=== PATIENT | female | born 1935 | race Two or more races ===

== ENCOUNTER 2019-06-24 12:26 | Inpatient (IN) | payer MEDICARE ==
[~2019-06-24] VITALS: Ht 160 cm; Wt 72.6 kg
[2019-06-24 13:10] LABS: BASO % 1 % (0-3); EOS # 0.2 x10^3/uL (0.0-0.7); EOS % 2 % (0-3); HEMOGLOBIN 11.9 g/dL (12.0-15.5); LYMPH # 0.9 x10^3/uL (1.0-4.8); LYMPH % 13 % (24-48); MEAN CORPUSCULAR HEMOGLOBIN 28 pg (25-35); MEAN CORPUSCULAR HGB CONC 32 g/dL (31-37); MEAN CORPUSCULAR VOLUME 86 fL (79-100); MONO # 0.4 x10^3/uL (0.0-1.1); MONO % 7 % (0-9); NEUT # 5.2 x10^3uL (1.8-7.7); NEUT % 78 % (31-73); PLATELET COUNT 208 x10^3/uL (140-400); RED BLOOD COUNT 4.33 x10^6/uL (3.50-5.40); RED CELL DISTRIBUTION WIDTH 15.7 % (11.5-14.5); WHITE BLOOD COUNT 6.6 x10^3/uL (4.0-11.0)
[2019-06-24 13:25] LABS: ALBUMIN 3.3 g/dL (3.4-5.0); CREATININE 0.9 mg/dL (0.6-1.0); DIRECT BILIRUBIN 0.1 mg/dL (0.0-0.2); GFR 59.8; POTASSIUM 4.6 mmol/L (3.5-5.1); TOTAL BILIRUBIN 0.3 mg/dL (0.2-1.0); TOTAL PROTEIN 6.7 g/dL (6.4-8.2)
--- NOTE | 2019-06-24 13:27 | PHYS DOC ---
Past History Past Medical History: Diabetes Additional Past Medical Histor: sciatica, chronic low back pain Additional Past Surgical Histo: unknown Alcohol Use: None Social History Narrative: lives with daughter Adult General Chief Complaint Chief Complaint: MULTIPLE COMPLAINTS HPI HPI 84-year-old female presenting to the emergency department today with discomfort in the chest region over the past 24 hours. This is a mild nonradiating pain without alleviating factors. The primary reason the patient's years for chronic low back pain. She was stepping down a step when she stepped farther than expected and may have injured her ankle and left hip. She has a mild amount of pain in the left hip and left ankle. She did not fall. She did not pass out. Onset today. Location left hip left ankle. She has a history of diabetes but denies having high blood pressure. She denies unilateral calf swelling or redness. She denies hemoptysis or history of DVT or PE. Review of systems is negative for abdominal pain vomiting fevers chills. All other review of systems negative. ED course: 84-year-old female presenting the emergency department today primarily complaining of left hip pain and chronic low back pain. She does mention a mild chest discomfort is been on and off more over the past 48 hours. EKG obtained and reviewed by myself shows sinus rhythm with a regular rate. ST segments congruent. Not suggestive of acute coronary syndrome. Chest x-ray and x-ray of the hip and ankle ordered along with blood work. CBC shows mild anemia. Chemistry panel shows minimally elevated lipase. Troponin within normal limits. Urinalysis is positive for leuk esterase. Many bacteria. Chest x-ray shows suspected left basilar infiltrate. X-rays of the hip and ankle show no acute fracture or dislocation. We will give the patient IV Levaquin here in the e mergency department. I spoke with Dr. Alonso who accepts patient for admission. Allergies Allergies Allergies Coded Allergies Type Severity Reaction Last Updated Verified Penicillins Allergy Unknown 06/24/19 Yes Physical Exam Physical Exam Constitutional: Well developed, well nourished, no acute distress, non-toxic appearance. [] HENT: Normocephalic, atraumatic, bilateral external ears normal, oropharynx moist, no oral exudates, nose normal. [] Eyes: PERRLA, EOMI, conjunctiva normal, no discharge. [] Neck: Normal range of motion, no tenderness, supple, no stridor. Cardiovascular: Regular rate and rhythm without a murmur. Lungs & Thorax: Bilateral breath sounds clear to auscultation [] Abdomen: Bowel sounds normal, soft, no tenderness, no masses, no pulsatile masses. [] Skin: Warm, dry, no erythema, she has a rash on her back that is circular darkening of the skin in 2cm diameter lesions that is been there chronically. Back: No tenderness, no CVA tenderness. [] Extremities: Patient has mild pain and left hip with passive range of motion but is able to ambulate without any hip pain. She has mild tenderness palpation of the left ankle without any swelling or ecchymosis. The foot is nontender. Palpable pulse with 2 second cap refill. Normal neurovascular status. Otherwise remainder the extremities are nontender with normal range of motion in joints and neurovascularly intact. Neurologic: Alert and oriented X 3, normal motor function, normal sensory function, no focal deficits noted. [] Psychologic: Affect normal, judgement normal, mood normal. [] Current Patient Data Lab Results Laboratory Tests Test 06/24/19 12:56 White Blood Count 6.6 x10^3/uL (4.0-11.0) Red Blood Count 4.33 x10^6/uL (3.50-5.40) Hemoglobin 11.9 g/dL (12.0-15.5) L Hematocrit 37.0 % (36.0-47.0) Mean Corpuscular Volume 86 fL (79-100) Mean Corpuscular Hemoglobin 28 pg (25-35) Mean Corpuscular Hemoglobin Concent 32 g/dL (31-37) Red Cell Distribution Width 15.7 % (11.5-14.5) H Platelet Count 208 x10^3/uL (140-400) Neutrophils (%) (Auto) 78 % (31-73) H Lymphocytes (%) (Auto) 13 % (24-48) L Monocytes (%) (Auto) 7 % (0-9) Eosinophils (%) (Auto) 2 % (0-3) Basophils (%) (Auto) 1 % (0-3) Neutrophils # (Auto) 5.2 x10^3uL (1.8-7.7) Lymphocytes # (Auto) 0.9 x10^3/uL (1.0-4.8) L Monocytes # (Auto) 0.4 x10^3/uL (0.0-1.1) Eosinophils # (Auto) 0.2 x10^3/uL (0.0-0.7) Basophils # (Auto) 0.0 x10^3/uL (0.0-0.2) EKG EKG [] Radiology/Procedures Radiology/Procedures [] Course & Med Decision Making Course & Med Decision Making Pertinent Labs and Imaging studies reviewed. (See chart for details) [] Dragon Disclaimer Dragon Disclaimer This electronic medical record was generated, in whole or in part, using a voice recognition dictation system. Departure Departure: Impression: Primary Impression: Left hip pain Additional Impressions: Rash Left ankle pain Chest pain Disposition: ADMITTED INPATIENT Condition: STABLE Referrals: PCP,NO (PCP) Patient Instructions: Chest Pain (Nonspecific) Additional Instructions: Thank you for allowing us to participate in your care today. Return to the emergency department you have any new or worsening symptoms, or if you are concerned for any reason. Return to emergency department if you have any new or concerning symptoms including but not limited to fever, chills, nausea, vomiting, intractable pain, any new rashes, chest pain, shortness of air, uncontrolled bleeding, difficulty breathing, and/or vision loss. Follow up with your primary care physician within 1-2 days. Call your Primary Doctor tomorrow and inform them of your visit today. If you do not have a primary care provider we are happy to provide you with a list of our primary care providers contact information. This condition should be evaluated by your primary care physician and any recommended consulting services for continued management within 2 days after discharge. If at any time, you are having difficulty getting into your primary care doctor or a specialist, return to the emergency department. Problem Qualifiers KEYA CHEN MD Jun 24, 2019 13:27
--- NOTE | 2019-06-24 13:44 | RAD ---
Exam performed: One view chest, left hip and pelvis and left ankle. Indication: Chest pain and pelvic pain, Date of Service: 06/24/2019 12:44 PM Comparison: None available. Single AP upright portable view chest findings: Cardiomediastinal silhouette is mildly enlarged. Ectatic tortuous aorta is seen. Mild airspace opacity seen in the left lung base. No pleural effusion or pneumothorax is detected. The bony structures are normal. Impression: Stable mild cardiomegaly. Suspected left basilar infiltrates. End impression 1 view pelvis and left hip findings: There is narrowing of bilateral hip joints predominantly the left hip joint with mild periarticular sclerosis. The sacroiliac joints appear grossly unremarkable.There is no acute fracture or dislocation. No soft tissue swelling or foreign body seen. IMPRESSION: Advanced degenerative arthrosis involving both hip joints, greater on the left. End impression 3 views left ankle findings: Normal alignment of the ankle mortise is preserved. There is no acute fracture or dislocation. There is diffuse soft tissue swelling around the ankle joint. No foreign body. IMPRESSION: Diffuse soft tissue swelling on the left ankle without underlying bony abnormality. Electronically signed by: Rosemary Garza MD (06/24/2019 1:41 PM) [facility]
[2019-06-24] MEDS ORDERED: IV NORMAL SALINE 1,000ML 1,000 ML IV SCH (14:13)
[2019-06-24 14:53] LABS: BILIRUBIN,URINE NEG (NEG); CLARITY,URINE CLOUDY; COLOR,URINE YELLOW; GLUCOSE,URINE NEG (NEG)
[2019-06-24 14:54] LABS: BACTERIA,URINE MANY /HPF (0-FEW); NITRITE,URINE NEG (NEG); RBC,URINE 0 /HPF (0-2); SQUAMOUS EPITHELIAL CELL,UR OCC /LPF; UROBILINOGEN,URINE 0.2 mg/dL (0.2 mg/dL); WBC,URINE 20-40 /HPF (0-4)
[2019-06-24 15:41] VITALS: BP 161/73
[2019-06-24] MEDS ORDERED: DIPH25CA58 PO (17:50)
[2019-06-24] MEDS ORDERED: TRIA15OI9 TP (17:50)
[2019-06-24] MEDS ORDERED: TRAM-48 PO (17:50)
[2019-06-24] MEDS ORDERED: METF850T8 PO (17:50)
[2019-06-24] MEDS ORDERED: GABA-586 PO (17:50)
[2019-06-24] MEDS ORDERED: ASPI81TA50 PO (17:50)
[2019-06-24 19:00] VITALS: BP 135/76
[2019-06-24] MEDS: TRIAMCINOLONE ACETONIDE 0.1% TOPICAL CREAM 15GM TUBE. TP SCH (21:00)
[2019-06-24] MEDS: diphenhydrAMINE HCL 25 MG CAPSULE PO SCH (21:00)
[2019-06-24] MEDS: GABAPENTIN 300 MG CAPSULE. PO SCH (21:00)
[2019-06-24] MEDS: metFORMIN 850 MG TABLET PO SCH (21:00)
[2019-06-24] MEDS: traMADol 50 MG TABLET PO SCH (21:00)
--- NOTE | 2019-06-24 22:35 | EKG ---
[address] [address] Test Date: 2019-06-24 Test Time: 12:40:51 Pat Name: BAYLEE WHALEN Department: Room: 111 A Gender: F Java Sdet: JOSE : 1935 Requested By: KEYA CHEN Order Number: [id number] Reading MD: Omar Kidd MD Measurements Intervals Tatamy Rate: 72 P: 30 AK: 146 QRS: -31 QRSD: 94 T: 38 QT: 392 QTc: 436 Interpretive Statements SINUS RHYTHM VENTRICULAR PREMATURE COMPLEX(ES) Electronically Signed On 06-25-2019 15:03:35 CDT by Omar Kidd MD
[2019-06-24 23:09] VITALS: BP 131/72
[2019-06-25] MEDS: IV NORMAL SALINE 1,000ML 1,000 ML IV SCH ×3 (01:07→21:51)
[2019-06-25 06:00] VITALS: BP 136/78
[2019-06-25 06:59] LABS: CALCIUM 8.4 mg/dL (8.5-10.1); CREATININE 0.8 mg/dL (0.6-1.0); GFR 68.5; POTASSIUM 4.4 mmol/L (3.5-5.1)
[2019-06-25 07:00] LABS: BASO % 1 % (0-3); EOS # 0.2 x10^3/uL (0.0-0.7); EOS % 4 % (0-3); HEMATOCRIT 33.8 % (36.0-47.0); HEMOGLOBIN 10.9 g/dL (12.0-15.5); LYMPH # 1.1 x10^3/uL (1.0-4.8); LYMPH % 20 % (24-48); MEAN CORPUSCULAR HEMOGLOBIN 28 pg (25-35); MEAN CORPUSCULAR HGB CONC 32 g/dL (31-37); MEAN CORPUSCULAR VOLUME 86 fL (79-100); MONO # 0.5 x10^3/uL (0.0-1.1); MONO % 9 % (0-9); NEUT # 3.7 x10^3uL (1.8-7.7); NEUT % 67 % (31-73); PLATELET COUNT 181 x10^3/uL (140-400); RED BLOOD COUNT 3.95 x10^6/uL (3.50-5.40); RED CELL DISTRIBUTION WIDTH 15.5 % (11.5-14.5); WHITE BLOOD COUNT 5.6 x10^3/uL (4.0-11.0)
[2019-06-25] MEDS: metFORMIN 850 MG TABLET PO SCH ×2 (08:00→16:26)
[2019-06-25] MEDS: LACTOBACILLUS RHAMNOSUS GG 1 CAPSULE. PO SCH ×2 (08:24→20:18)
[2019-06-25] MEDS: traMADol 50 MG TABLET PO SCH ×2 (08:24→20:20)
[2019-06-25] MEDS: GABAPENTIN 300 MG CAPSULE. PO SCH ×2 (08:25→20:17)
[2019-06-25] MEDS: ASPIRIN ENTERIC COATED 81 MG TABLET.DR. PO SCH (08:25)
[2019-06-25] MEDS: diphenhydrAMINE HCL 25 MG CAPSULE PO SCH ×2 (08:25→20:21)
[2019-06-25] MEDS ORDERED: FLU VAX QS 2019-20 (36MOS+)/PF 0.5 ML SYRINGE. VAX IM ONE (09:00)
[2019-06-25] MEDS: TRIAMCINOLONE ACETONIDE 0.1% TOPICAL CREAM 15GM TUBE. TP SCH ×2 (09:36→20:22)
[2019-06-25 11:41] VITALS: BP 120/77
--- NOTE | 2019-06-25 12:49 | HP ---
ADMIT DATE: HISTORY OF PRESENT ILLNESS: The patient is an 84-year-old female patient who came to the Emergency Room complaining of discomfort in her chest over the last 24 hours. She is also deemed the pain is mild and radiating without alleviating factors. She has also chronic low back pain. She was stepping down the steps when she stepped further than expected and may have injured her ankle and left hip. She has a mild amount of pain in the left hip and left ankle joint. She did not fall and not pass out. She was evaluated in the Emergency Room and has had extensive lab work including chemistry. Her white cell count was normal. She has mild elevation of lipase and her urinalysis showed that she has 20-40 wbc's, many bacteria and the urine was cloudy. She has had a chest x-ray, which showed that the cardiomediastinal silhouette is mildly enlarged, ectatic tortuous aorta is seen, mild airspace opacity seen in the left lung base. No pleural effusion or pneumothorax detected. She does have mild suspected left basilar infiltrate. The x-ray of the pelvis and left hip showed she has advanced degenerative arthrosis involving both hip joints, greater on the left. She also has diffuse soft tissue swelling of the left ankle without underlying bony abnormalities. The patient was admitted and was treated with IV levofloxacin for pneumonia as well as urinary tract infection. She continued on IV fluid, continued on all her other medications. PAST MEDICAL HISTORY: Significant for type 2 diabetes mellitus and generalized osteoarthritis. She apparently has a skin rash that has been going on for almost 2 years now. It is pruritic, affects both shoulders and chest wall anteriorly and also both upper extremities. Dark colored nodules with surrounding areas of dark skin. PAST SURGICAL HISTORY: Significant for cataract extraction in the left eye as well as cholecystectomy. ALLERGIES: She is allergic to PENICILLIN. MEDICATIONS: She is currently on following medications: She is on diphenhydramine 25 mg twice a day, aspirin 81 mg once a day, tramadol 50 mg twice a day, gabapentin 300 mg twice a day. She is on metformin 850 mg twice a day with meals and triamcinolone acetonide applied topically twice a day to the affected area of the skin. FAMILY HISTORY: She has 3 sisters and 3 brothers though still alive and both parents are , but does not know the date and the cause of their . SOCIAL HISTORY: She is and has 3 sons and 3 daughters. She smokes occasionally. Does not drink alcohol or use any recreational drugs. 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 REVIEW OF SYSTEMS: As per history of present illness. PHYSICAL EXAMINATION GENERAL: When I examined her, she looked well and was clearly in no apparent respiratory distress. No pallor, jaundice, cyanosis or thyromegaly. No jugular venous distention. No lower limb edema. VITAL SIGNS: Her heart rate was 71, blood pressure was 144/71, temperature was 97.9, respiratory rate was 20, and oxygen saturation was 96%. HEAD, EYES, EARS, NOSE AND THROAT: Showed normocephalic, atraumatic. NECK: Supple. HEART: Showed normal first and second heart sounds. No gallop or murmur. CHEST: Clear to auscultation. No crepitation or rhonchi. ABDOMEN: Distended, soft, nontender. NEUROLOGIC: She is awake, alert, responding appropriately. All cranial nerves intact. EXTREMITIES: She moves extremities without difficulty. She ambulates without assistance or assistive devices, although her daughter stated that she is very unsteady. LABORATORY DATA: On admission showed a white cell count of 6600, hemoglobin 11.9, hematocrit 37, MCV 86 and platelet count of 208,000 with normal manual differential. Her chemistry showed that her serum sodium 140, potassium 4.6, chloride 106, bicarbonate 26, anion gap of 8, BUN 25, creatinine 0.9, estimated GFR was 60 mL per minute. Her glucose 165, calcium was 9. Total bilirubin, AST, ALT, alkaline phosphatase were normal. Total protein was 6.7, albumin was 3.3 and serum lipase was 401. Urinalysis showed the urine was yellow, cloudy with a pH of 5, specific gravity of 1.010. The urine was negative for protein, glucose, ketones, blood, nitrite with moderate amount of leukocyte esterase. There are no rbc's. There are 20-40 wbc's and too many bacteria. Her chest x-ray showed that the patient has cardiomediastinal silhouette is mildly enlarged, ectatic tortuous aorta is seen, mild airspace opacity is seen in the left lung base. No pleural effusion or pneumothorax detected. The bony structures are normal. X-ray of the pelvis and left hip showed that the patient has advanced degenerative arthrosis involving both hip joints, greater on the left and she has also soft tissue swelling surrounding the left ankle joint without underlying bony abnormalities. ASSESSMENT AND PLAN: The patient was admitted with community-acquired pneumonia as well as urinary tract infection. She was also found to have advanced osteoarthritis of the left hip joint and left ankle joint. She has chest pain that was atypical and patient was started on IV Levaquin and was continued on all her other medications and decide the further management accordingly. BIRGIT PARTIDA MD DR: ARIS/real JOB#: [id number] / [id number]
--- NOTE | 2019-06-25 13:49 | PN ---
DATE: 06/25/2019 SUBJECTIVE: The patient is sitting at the edge of the bed comfortably in no apparent distress. She apparently continued to complain of pain in her hip joint and her ankle joint also. She has this pruritic skin rash affecting mostly both shoulder joints and upper extremities and part of the anterior chest wall. PHYSICAL EXAMINATION: GENERAL: When I examined her, she was somewhat pale, but no jaundice, cyanosis, or thyromegaly. No jugular venous distension. No limb edema. VITAL SIGNS: Her heart rate was 64, blood pressure was 136/78, temperature was 97.8, respiratory rate was 18, and oxygen saturation was 95%. HEAD, EYES, EARS, NOSE, AND THROAT: Normocephalic, atraumatic. NECK: Supple. HEART: Showed normal first and second heart sounds. No gallop or murmur. CHEST: Clear to auscultation. No crepitation or rhonchi. ABDOMEN: Distended, soft, nontender. NEUROLOGIC: She was awake, alert, responding appropriately. Her intake and output are incompletely recorded. LABORATORY DATA: Her lab work as of this morning showed that her serum sodium was 139, potassium 4.4, chloride 108, bicarbonate 24, anion gap of 6, BUN 23, creatinine 0.8, estimated GFR was 68.5 mL per minute. Her glucose 137, calcium was 8.4. She has so far 3 sets of cardiac enzymes, showed troponin to be less than 0.017 ruling out myocardial infarction. Her white cell count was 5600, hemoglobin 11, hematocrit 33, MCV 86, and platelet count of 181,000. Her urine culture is still pending at the time of this dictation. ASSESSMENT AND PLAN: This is an 84-year-old female patient who came in with complaint of low back pain, pain in her left hip and left ankle joint. X-ray showed advanced degenerative joint disease and soft tissue swelling around her left ankle without any obvious fracture. She was found to have left lower lobe infiltrate as well as urinary tract infection. She is now on Levaquin. My plan is to continue with that today. We will repeat all her labs tomorrow and if she remains stable, we will discharge her tomorrow to continue on oral antibiotic. BIRGIT PARTIDA MD DR: ARIS/real JOB#: [id number] / [id number]
--- NOTE | 2019-06-25 15:15 | PDOC ---
PROVIDER NOTE PROVIDER NOTE PROVIDER NOTE CC: Chest pain HPI: 84 y.o woman presenting with chest pain. Being tx for PNA and UTI. I had a long conversation with her and her daughter. Patient apparently advised to have a heart cath in [place] and she has refused. She again today does NOT want a heart procedure or further testing and only wants medical therapy. Denies any current chest pain, orthopnea, PND or LE edema. No syncope or palpitations. Pmhx: 1. HTN 2. Tobacco abuse Sochx: From [place]. Occ tobacco use. ALL: PCN Meds: reviewed. No present CV meds. Constitutional: Well developed, well nourished, no acute distress, non-toxic appearance. HENT: Normocephalic, atraumatic, Eyes: clear Neck: Normal range of motion, no tenderness, supple, no stridor. Cardiovascular: JVP not elevated. No carotid bruit. Nor precordial pulsations or heaves. S1 N,S2N. No murmurs. No rubs or clicks. Thorax and Lungs: Normal respiration. Normal chest expansion. Normal to percuss. Equal breath sounds. No crackles. No wheeze. Abdomen: Bowel sounds normal, soft, no tenderness, no masses, no pulsatile masses. Skin: Warm, dry, no erythema, no rash. Back: No tenderness, no CVA tenderness. Extremities: 1+ pulses, no tenderness, no cyanosis, no clubbing, ROM intact, no edema. Neurologic: Alert and oriented X 3, normal motor function, normal sensory function, no focal deficits noted. Psychologic: Affect normal, judgement normal, mood normal. DIAGNOSTIC TESTING: EKG unremarkable Labs reviewed. Negative trop Impression: 1. Atypical chest pain, possibly related to infection. 2. HTN 3. Tobacco abuse 4. ? CAD based on recommendatios from [place] for cardiac cath? Plan: 1. Since patient wants conservative mgmt, plan for medical therapy only as discussed above. -Start metoprolol 12.5mg bid, imdur 30mg daily, atorvastatin 20mg daily, and continue asa 81mg daily Pls call with questions. Thanks IRISH CHACON MD Jun 25, 2019 15:15
[2019-06-25 15:28] VITALS: BP 119/69
[2019-06-25 15:48] VITALS: BP 119/69
[2019-06-25] MEDS: ISOSORBIDE MONONITRATE ER 30 MG TAB.ER.24H PO SCH (16:26)
[2019-06-25] MEDS ORDERED: METHYL SALICYLATE/MENTHOL TOPICAL OINTMENT 57GM TUBE. TP PRN (20:00)
[2019-06-25 20:15] VITALS: BP 116/67
[2019-06-25] MEDS: METOPROLOL TART IMMED RELEASE 25 MG TABLET PO SCH (20:18)
[2019-06-25] MEDS ORDERED: ATORVASTATIN CALCIUM 20 MG TABLET PO SCH (21:00)
[2019-06-25 23:54] VITALS: BP 124/69
[2019-06-26 06:05] VITALS: BP 126/69
[2019-06-26] MEDS: metFORMIN 850 MG TABLET PO SCH (08:00)
--- NOTE | 2019-06-26 08:09 | PDOC ---
CARDIO Progress Notes Date & Time Date of Service DATE: 06/26/19 TIME: 08:06 Time of Evaluation 08:06 Subjective Notes No chest pain, palpitations, dizziness Vitals Vitals Vital Signs Date Time Temp Pulse Resp B/P (MAP) Pulse Ox O2 Delivery O2 Flow Rate FiO2 06/26/19 06:05 98.1 70 16 126/69 (88) 94 Room Air Weight Weight [ ] Input and Output I.O. Intake and Output 06/26/19 06:59 Intake Total 1000 ml Balance 1000 ml IV Total 1000 ml # Voids 6 Laboratory Labs Laboratory Tests Test 06/24/19 12:56 06/24/19 14:19 06/24/19 16:46 06/24/19 20:10 White Blood Count 6.6 x10^3/uL (4.0-11.0) Red Blood Count 4.33 x10^6/uL (3.50-5.40) Hemoglobin 11.9 g/dL (12.0-15.5) Hematocrit 37.0 % (36.0-47.0) Mean Corpuscular Volume 86 fL (79-100) Mean Corpuscular Hemoglobin 28 pg (25-35) Mean Corpuscular Hemoglobin Concent 32 g/dL (31-37) Red Cell Distribution Width 15.7 % (11.5-14.5) Platelet Count 208 x10^3/uL (140-400) Neutrophils (%) (Auto) 78 % (31-73) Lymphocytes (%) (Auto) 13 % (24-48) Monocytes (%) (Auto) 7 % (0-9) Eosinophils (%) (Auto) 2 % (0-3) Basophils (%) (Auto) 1 % (0-3) Neutrophils # (Auto) 5.2 x10^3uL (1.8-7.7) Lymphocytes # (Auto) 0.9 x10^3/uL (1.0-4.8) Monocytes # (Auto) 0.4 x10^3/uL (0.0-1.1) Eosinophils # (Auto) 0.2 x10^3/uL (0.0-0.7) Basophils # (Auto) 0.0 x10^3/uL (0.0-0.2) Sodium Level 140 mmol/L (136-145) Potassium Level 4.6 mmol/L (3.5-5.1) Chloride Level 106 mmol/L (98-107) Carbon Dioxide Level 26 mmol/L (21-32) Anion Gap 8 (6-14) Blood Urea Nitrogen 25 mg/dL (7-20) Creatinine 0.9 mg/dL (0.6-1.0) Estimated GFR (Cockcroft-Gault) 59.8 Glucose Level 165 mg/dL (70-99) Calcium Level 9.0 mg/dL (8.5-10.1) Total Bilirubin 0.3 mg/dL (0.2-1.0) Direct Bilirubin 0.1 mg/dL (0.0-0.2) Aspartate Amino Transf (AST/SGOT) 20 U/L (15-37) Alanine Aminotransferase (ALT/SGPT) 28 U/L (14-59) Alkaline Phosphatase 122 U/L (46-116) Troponin I Quantitative < 0.017 ng/mL (0-0.055) < 0.017 ng/mL (0-0.055) Total Protein 6.7 g/dL (6.4-8.2) Albumin 3.3 g/dL (3.4-5.0) Lipase 401 U/L (73-393) Urine Collection Type Unknown Urine Color Yellow Urine Clarity Cloudy Urine pH 5.0 Urine Specific [place] 1.010 Urine Protein Neg (NEG-TRACE) Urine Glucose (UA) Neg mg/dL (NEG) Urine Ketones (Stick) Neg mg/dL (NEG) Urine Blood Neg (NEG) Urine Nitrite Neg (NEG) Urine Bilirubin Neg (NEG) Urine Urobilinogen Dipstick 0.2 mg/dL (0.2 mg/dL) Urine Leukocyte Esterase Mod (NEG) Urine RBC 0 /HPF (0-2) Urine WBC 20-40 /HPF (0-4) Urine Squamous Epithelial Cells Occ /LPF Urine Bacteria Many /HPF (0-FEW) Glucose (Fingerstick) 125 mg/dL (70-99) Test 06/24/19 22:16 06/25/19 03:00 06/25/19 06:19 Glucose (Fingerstick) 128 mg/dL (70-99) Troponin I Quantitative < 0.017 ng/mL (0-0.055) White Blood Count 5.6 x10^3/uL (4.0-11.0) Red Blood Count 3.95 x10^6/uL (3.50-5.40) Hemoglobin 10.9 g/dL (12.0-15.5) Hematocrit 33.8 % (36.0-47.0) Mean Corpuscular Volume 86 fL (79-100) Mean Corpuscular Hemoglobin 28 pg (25-35) Mean Corpuscular Hemoglobin Concent 32 g/dL (31-37) Red Cell Distribution Width 15.5 % (11.5-14.5) Platelet Count 181 x10^3/uL (140-400) Neutrophils (%) (Auto) 67 % (31-73) Lymphocytes (%) (Auto) 20 % (24-48) Monocytes (%) (Auto) 9 % (0-9) Eosinophils (%) (Auto) 4 % (0-3) Basophils (%) (Auto) 1 % (0-3) Neutrophils # (Auto) 3.7 x10^3uL (1.8-7.7) Lymphocytes # (Auto) 1.1 x10^3/uL (1.0-4.8) Monocytes # (Auto) 0.5 x10^3/uL (0.0-1.1) Eosinophils # (Auto) 0.2 x10^3/uL (0.0-0.7) Basophils # (Auto) 0.0 x10^3/uL (0.0-0.2) Sodium Level 139 mmol/L (136-145) Potassium Level 4.4 mmol/L (3.5-5.1) Chloride Level 109 mmol/L (98-107) Carbon Dioxide Level 24 mmol/L (21-32) Anion Gap 6 (6-14) Blood Urea Nitrogen 23 mg/dL (7-20) Creatinine 0.8 mg/dL (0.6-1.0) Estimated GFR (Cockcroft-Gault) 68.5 Glucose Level 137 mg/dL (70-99) Calcium Level 8.4 mg/dL (8.5-10.1) Physical Exams HEENT: Neck Supple W Full Motion Chest: Symmetric Lungs: Clear to Auscultation Heart: S1S2, RRR Abdomen: Soft N/T Neurology: alert, oriented, follow commands Assessment Assessment 1. Chest pain, atypical. AMI ruled out. 2. Hypertension; controlled 3. Diabetes, II 4. Tobaccoism 5. ? CAD Recommendations Continue conservative management as per patient request Patient refusing ASA, statin, BB, and indur. Nothing further to add from a CV stanpoint. May discharge RAJAT STANFORD APRN Jun 26, 2019 08:09
[2019-06-26] MEDS: IV NORMAL SALINE 1,000ML 1,000 ML IV SCH ×2 (08:22→14:01)
[2019-06-26] MEDS: GABAPENTIN 300 MG CAPSULE. PO SCH (08:23)
[2019-06-26] MEDS: diphenhydrAMINE HCL 25 MG CAPSULE PO SCH (08:23)
[2019-06-26] MEDS: LACTOBACILLUS RHAMNOSUS GG 1 CAPSULE. PO SCH (08:23)
[2019-06-26] MEDS: traMADol 50 MG TABLET PO SCH (08:24)
[2019-06-26] MEDS: ASPIRIN ENTERIC COATED 81 MG TABLET.DR. PO SCH (08:24)
[2019-06-26] MEDS: ISOSORBIDE MONONITRATE ER 30 MG TAB.ER.24H PO SCH (08:28)
[2019-06-26] MEDS: METOPROLOL TART IMMED RELEASE 25 MG TABLET PO SCH (08:29)
[2019-06-26] MEDS: TRIAMCINOLONE ACETONIDE 0.1% TOPICAL CREAM 15GM TUBE. TP SCH (08:29)
[2019-06-26 10:39] VITALS: BP 149/76
[2019-06-26] MEDS ORDERED: ASPI-630 PO (14:43)
[2019-06-26] MEDS ORDERED: ATOR20TA PO (14:43)
[2019-06-26] MEDS ORDERED: ISOS30TA4 PO (14:43)
[2019-06-26] MEDS ORDERED: METO25TA4 PO (14:43)
[2019-06-26] MEDS ORDERED: LEVO500T59 PO (14:43)
[2019-06-26 15:00] VITALS: BP 162/82
[2019-06-29 08:08] LABS: HEMOGLOBIN A1C 7.7 % (4.8-5.6)
== END 2019-06-26 15:30 | disposition home or self-care (01) | DRG 391 ==
LOC: ER 12:26 → 1 SOUTH 15:13
PROVIDERS: ADMIT Internal Medicine; ATTEND Internal Medicine
DX: K21.9 Gastro-esophageal reflux disease without esophagitis (principal); J18.9 Pneumonia, unspecified organism; N39.0 Urinary tract infection, site not specified; M16.12 Unilateral primary osteoarthritis, left hip; I10 Essential (primary) hypertension; E11.9 Type 2 diabetes mellitus without complications; G89.29 Other chronic pain; D64.9 Anemia, unspecified; Z88.0 Allergy status to penicillin; L29.9 Pruritus, unspecified; Z90.49 Acquired absence of other specified parts of digestive tract; F17.200 Nicotine dependence, unspecified, uncomplicated; I25.10 Atherosclerotic heart disease of native coronary artery without angina pectoris
CPT/HCPCS: 36415; 71045; 73502; 73610; 80048; 80076; 81001; 82947; 83036; 83690; 84484; 85025; 87086; 90471; 90686; 93005; 96365; J1956; Q0163; 99285-25; J7030

== ENCOUNTER 2019-06-30 11:11 | Inpatient (IN) | payer MEDICARE ==
[~2019-06-30] VITALS: Ht 160 cm; Wt 71.8 kg
[~2019-06-30 11:11] MED LIST: ASPI-630 PO; ASPI81TA50 PO; ATOR20TA PO; DIPH25CA58 PO; GABA-586 PO; ISOS30TA4 PO; LEVO500T59 PO; METF850T8 PO; METO25TA4 PO; TRAM-48 PO; TRIA15OI9 TP
[2019-06-30] MEDS ORDERED: IV NORMAL SALINE 1,000ML 1,000 ML IV SCH (11:26)
[2019-06-30] MEDS ORDERED: ONDANSETRON PF 4 MG/2 ML VIAL. IVP ONE ×2 (11:30→15:15)
--- NOTE | 2019-06-30 11:36 | PHYS DOC ---
Past History Past Medical History: Diabetes Additional Past Medical Histor: sciatica, chronic low back pain Past Surgical History: Cholecystectomy Additional Past Surgical Histo: unknown Alcohol Use: None Drug Use: None Adult General Chief Complaint Chief Complaint: NAUSEA/VOMITING/[facility] Patient is an 84-year-old female who presents with report of nausea with vomiting and some abdominal discomfort that started yesterday. Patient has had no diarrhea. Patient did have a bowel movement this morning after having taken some laxatives. Patient does have a history of constipation. Patient reports no fever. Pain at this time is mild in her abdomen and is more in the upper abdomen. There is no radiation of the pain into the back. Patient denies any chest pain or shortness of breath. She has had difficulty with keeping anything down since onset of vomiting.[] Review of Systems Review of Systems Constitutional: Denies fever or chills [] Respiratory: Denies cough or shortness of breath [] Cardiovascular: No additional information not addressed in HPI [] GI: Complains of abdominal pain with nausea and vomiting. Denies diarrhea [] Integument: Denies rash or skin lesions [] Neurologic: Denies headache, focal weakness or sensory changes [] All other systems were reviewed and found to be within normal limits, except as documented in this note. Current Medications Current Medications Current Medications Medications (Trade) Dose Ordered Sig/Roc Start Time Stop Time Status Last Admin Dose Admin Ondansetron HCl (Zofran) 4 mg 1X ONCE 06/30/19 11:30 06/30/19 11:31 Sodium Chloride 1,000 ml @ 1,000 mls/hr Q1H 06/30/19 11:26 06/30/19 12:25 Allergies Allergies Allergies Coded Allergies Type Severity Reaction Last Updated Verified Penicillins Allergy Unknown 06/24/19 Yes Physical Exam Physical Exam Constitutional: Well developed, well nourished, no acute distress, non-toxic appearance. [] HENT: Normocephalic, atraumatic, bilateral external ears normal, oropharynx moist, no oral exudates, nose normal. [] Eyes: PERRLA, EOMI, conjunctiva normal, no discharge. [] Neck: Normal range of motion, no tenderness, supple. [] Cardiovascular: Regular rate and rhythm[] Lungs & Thorax: Bilateral breath sounds clear to auscultation [] Abdomen: Bowel sounds normal, soft, with mild epigastric tenderness. [] Skin: Warm, dry, no erythema, no rash. [] Extremities: No tenderness, no cyanosis, no clubbing, ROM intact. [] Neurologic: Awake and alert, no focal deficits noted. [] EKG EKG EKG demonstrates normal sinus rhythm with rate of 81.[] Radiology/Procedures Radiology/Procedures [] Impressions: PROCEDURE: CT ABD PELV W/ IV CONTRST ONLY CT ABD PELV W/ IV CONTRST ONLY Indication: Abdomen pain. Exposure: One or more of the following individualized dose reduction techniques were utilized for this examination: 1. Automated exposure control 2. Adjustment of the mA and/or kV according to patient size 3. Use of iterative reconstruction technique. Technique: Intravenous contrast was given. No oral contrast per request. Mild linear markings of the lung bases compatible with atelectasis or fibrosis. Trace pericardial effusion. Liver and spleen appear unremarkable. Pancreas is unremarkable. No adrenal mass. Kidneys demonstrate symmetric enhancement with renal cortical atrophy and lobulated morphology. No evidence of hydronephrosis or dominant mass. Gallbladder is surgically absent. Aorta is calcified without aneurysmal dilatation. No significant lymph node enlargement. No significant small bowel distention. No evidence of acute colitis. The appendix appears normal. No evidence of ascites or pneumoperitoneum. Urinary bladder appears unremarkable. No evidence of pelvic mass. Small fat-containing anterior abdominal wall hernia in the umbilical region. Degenerative spondylosis. No evidence of acute fracture. Degenerative changes at both hips. IMPRESSION: 1. No acute findings in the abdomen or pelvis. 2. Trace pericardial effusion. Electronically signed by: Fortunato Betancourt MD (06/30/2019 2:56 PM) [facility] Course & Med Decision Making Course & Med Decision Making Pertinent Labs and Imaging studies reviewed. (See chart for details) [] Dragon Disclaimer Dragon Disclaimer This electronic medical record was generated, in whole or in part, using a voice recognition dictation system. Departure Departure: Impression: Primary Impression: Nausea and vomiting Additional Impression: Pericardial effusion Disposition: 09 ADMITTED INPATIENT Admitting Physician: Nyasia Scott Condition: IMPROVED Referrals: PCP,NO (PCP) Problem Qualifiers Primary Impression: Nausea and vomiting Vomiting type: unspecified Vomiting Intractability: non-intractable Qualified Codes: R11.2 - Nausea with vomiting, unspecified LINNETTE WOOD Jr. DO Jun 30, 2019 11:36
[2019-06-30 12:03] LABS: BASO % 0 % (0-3); EOS # 0.1 x10^3/uL (0.0-0.7); EOS % 1 % (0-3); HEMOGLOBIN 11.9 g/dL (12.0-15.5); LYMPH # 0.9 x10^3/uL (1.0-4.8); LYMPH % 9 % (24-48); MEAN CORPUSCULAR HEMOGLOBIN 27 pg (25-35); MEAN CORPUSCULAR HGB CONC 32 g/dL (31-37); MEAN CORPUSCULAR VOLUME 85 fL (79-100); MONO # 0.5 x10^3/uL (0.0-1.1); MONO % 5 % (0-9); NEUT # 8.2 x10^3uL (1.8-7.7); NEUT % 85 % (31-73); PLATELET COUNT 214 x10^3/uL (140-400); RED BLOOD COUNT 4.33 x10^6/uL (3.50-5.40); RED CELL DISTRIBUTION WIDTH 15.5 % (11.5-14.5); WHITE BLOOD COUNT 9.7 x10^3/uL (4.0-11.0)
--- NOTE | 2019-06-30 12:03 | EKG ---
[address] [address] Test Date: 2019-06-30 Test Time: 11:59:17 Pat Name: BAYLEE WHALEN Department: Room: Gender: F Manager Forms: JONATHAN : 1935 Requested By: LINNETTE WOOD Order Number: [id number] Reading MD: Measurements Intervals [place] Rate: 81 P: 59 WV: 142 QRS: -33 QRSD: 90 T: 103 QT: 404 QTc: 470 Interpretive Statements SINUS RHYTHM VENTRICULAR PREMATURE COMPLEX(ES) ABNORMAL LEFT AXIS DEVIATION QRS(T) CONTOUR ABNORMALITY CONSIDER ANTERIOR INFARCT T ABNORMALITY IN LATERAL LEADS ABNORMAL ECG RI6.01 Compared to ECG 06/24/2019 12:40:51 Left-axis deviation now present Myocardial infarct finding now present T-wave abnormality now present
[2019-06-30 12:14] LABS: ALBUMIN 3.5 g/dL (3.4-5.0); CALCIUM 9.4 mg/dL (8.5-10.1); POTASSIUM 4.7 mmol/L (3.5-5.1); TOTAL BILIRUBIN 0.3 mg/dL (0.2-1.0); TOTAL PROTEIN 7.1 g/dL (6.4-8.2)
[2019-06-30] MEDS ORDERED: IOHEXOL 300 MG/ML 75 ML VIAL. IV ONE (13:30)
--- NOTE | 2019-06-30 15:00 | RAD ---
CT ABD PELV W/ IV CONTRST ONLY Indication: Abdomen pain. Exposure: One or more of the following individualized dose reduction techniques were utilized for this examination: 1. Automated exposure control 2. Adjustment of the mA and/or kV according to patient size 3. Use of iterative reconstruction technique. Technique: Intravenous contrast was given. No oral contrast per request. Mild linear markings of the lung bases compatible with atelectasis or fibrosis. Trace pericardial effusion. Liver and spleen appear unremarkable. Pancreas is unremarkable. No adrenal mass. Kidneys demonstrate symmetric enhancement with renal cortical atrophy and lobulated morphology. No evidence of hydronephrosis or dominant mass. Gallbladder is surgically absent. Aorta is calcified without aneurysmal dilatation. No significant lymph node enlargement. No significant small bowel distention. No evidence of acute colitis. The appendix appears normal. No evidence of ascites or pneumoperitoneum. Urinary bladder appears unremarkable. No evidence of pelvic mass. Small fat-containing anterior abdominal wall hernia in the umbilical region. Degenerative spondylosis. No evidence of acute fracture. Degenerative changes at both hips. IMPRESSION: 1. No acute findings in the abdomen or pelvis. 2. Trace pericardial effusion. Electronically signed by: Fortunato Betancourt MD (06/30/2019 2:56 PM) [facility]
[2019-06-30] MEDS ORDERED: ONDANSETRON PF 4 MG/2 ML VIAL. IV PRN (15:30)
[2019-06-30 15:42] LABS: BILIRUBIN,URINE NEG (NEG); CLARITY,URINE HAZY; COLOR,URINE YELLOW; GLUCOSE,URINE NEG (NEG)
[2019-06-30 15:43] LABS: BACTERIA,URINE 0 /HPF (0-FEW); NITRITE,URINE NEG (NEG); SQUAMOUS EPITHELIAL CELL,UR MOD /LPF; UROBILINOGEN,URINE 0.2 mg/dL (0.2 mg/dL)
[2019-06-30] MEDS ORDERED: traMADol 50 MG TABLET PO ONE (17:15)
[2019-06-30 18:33] VITALS: BP 114/63
[2019-06-30 19:27] VITALS: BP 110/72
[2019-06-30] MEDS ORDERED: CONTRAST GIVEN MC PRN (19:45)
[2019-06-30] MEDS: diphenhydrAMINE HCL 25 MG CAPSULE PO SCH (19:54)
[2019-06-30] MEDS: IV NORMAL SALINE 1,000ML 1,000 ML IV SCH (19:54)
[2019-06-30] MEDS: METOPROLOL TART IMMED RELEASE 25 MG TABLET PO SCH (19:56)
[2019-06-30] MEDS: traMADol 50 MG TABLET PO SCH (19:56)
[2019-06-30] MEDS: GABAPENTIN 300 MG CAPSULE. PO SCH (19:56)
[2019-06-30 23:13] VITALS: BP 107/70
[2019-07-01] MEDS: IV NORMAL SALINE 1,000ML 1,000 ML IV SCH (04:51)
[2019-07-01 05:39] VITALS: BP 100/66
[2019-07-01 06:55] LABS: CALCIUM 8.1 mg/dL (8.5-10.1); CREATININE 0.7 mg/dL (0.6-1.0); GFR 79.9; POTASSIUM 4.2 mmol/L (3.5-5.1)
[2019-07-01 07:08] LABS: BASO % 0 % (0-3); EOS # 0.2 x10^3/uL (0.0-0.7); EOS % 2 % (0-3); HEMATOCRIT 32.1 % (36.0-47.0); HEMOGLOBIN 10.4 g/dL (12.0-15.5); LYMPH # 1.3 x10^3/uL (1.0-4.8); LYMPH % 18 % (24-48); MEAN CORPUSCULAR HEMOGLOBIN 28 pg (25-35); MEAN CORPUSCULAR HGB CONC 32 g/dL (31-37); MEAN CORPUSCULAR VOLUME 85 fL (79-100); MONO # 0.6 x10^3/uL (0.0-1.1); MONO % 8 % (0-9); NEUT % 71 % (31-73); PLATELET COUNT 176 x10^3/uL (140-400); RED BLOOD COUNT 3.76 x10^6/uL (3.50-5.40); RED CELL DISTRIBUTION WIDTH 15.6 % (11.5-14.5); WHITE BLOOD COUNT 7.1 x10^3/uL (4.0-11.0)
[2019-07-01] MEDS: diphenhydrAMINE HCL 25 MG CAPSULE PO SCH (08:26)
[2019-07-01] MEDS: ISOSORBIDE MONONITRATE ER 30 MG TAB.ER.24H PO SCH ×2 (08:27→08:41)
[2019-07-01] MEDS: GABAPENTIN 300 MG CAPSULE. PO SCH (08:27)
[2019-07-01] MEDS: ATORVASTATIN CALCIUM 20 MG TABLET PO SCH ×2 (08:28→08:42)
[2019-07-01] MEDS: METOPROLOL TART IMMED RELEASE 25 MG TABLET PO SCH ×2 (08:28→08:42)
[2019-07-01] MEDS: traMADol 50 MG TABLET PO SCH (08:28)
[2019-07-01] MEDS ORDERED: ASPIRIN ENTERIC COATED 81 MG TABLET.DR. PO SCH (09:00)
[2019-07-01] MEDS ORDERED: levoFLOXacin 500 MG TABLET PO SCH (09:00)
[2019-07-01 10:35] VITALS: BP 104/71
[2019-07-01 10:36] LABS: THYROID STIM HORMONE (TSH) 4.746 uIU/mL (0.358-3.740)
[2019-07-01] MEDS ORDERED: METHYL SALICYLATE/MENTHOL TOPICAL OINTMENT 57GM TUBE. TP PRN (12:15)
--- NOTE | 2019-07-01 14:12 | PDOC2 ---
CONSULT Date of Admission DATE: 07/01/19 TIME: 14:12 Reason for Consult: Pericardial effusion Referring Physician: Dr. Scott Chief Complaint Nausea and vomiting Source: Chart review, Patient Problem List Problems Medical Problems: (1) Nausea and vomiting Status: Acute (2) Pericardial effusion Status: Acute History of Present Illness 84-year-old female presented with nausea, vomiting and abdominal discomfort. CT scan of the abdomen showed trace pericardial effusion prompting cardiology co nsultation. She stated that she had chest pain when she had nausea and vomiting but currently is chest pain-free. She denied any exertional component. She was apparently told that she needed heart catheterization in [place] few years ago but declined any further workup then and also during more recent hospitalization here. She denied any orthopnea/PND, palpitations or syncope. Past Medical History Hypertension Diabetes mellitus type 2 Past Surgical History Cholecystectomy Family History Negative for premature coronary disease Social History Patient denied any smoking alcohol or drug use Current Medications Current Medications Sodium Chloride 1,000 ml @ 1,000 mls/hr Q1H IV Last administered on 06/30/19at 12:05; Start 06/30/19 at 11:26; Stop 06/30/19 at 12:25; Status DC Ondansetron HCl (Zofran) 4 mg 1X ONCE IVP Last administered on 06/30/19at 12:05; Start 06/30/19 at 11:30; Stop 06/30/19 at 11:32; Status DC Iohexol (Omnipaque 300 Mg/ml) 75 ml 1X ONCE IV Last administered on 06/30/19at 13:44; Start 06/30/19 at 13:30; Stop 06/30/19 at 13:31; Status DC Ondansetron HCl (Zofran) 4 mg 1X ONCE IVP Last administered on 06/30/19at 15:06; Start 06/30/19 at 15:15; Stop 06/30/19 at 15:16; Status DC Ondansetron HCl (Zofran) 4 mg PRN Q4HRS PRN IV NAUSEA/VOMITING Last administered on 07/01/19at 08:32; Start 06/30/19 at 15:30; Stop 07/01/19 at 15:29 Sodium Chloride 1,000 ml @ 100 mls/hr Q10H IV Last administered on 07/01/19at 04:51; Start 06/30/19 at 15:16; Stop 07/01/19 at 15:15 Tramadol HCl (Ultram) 50 mg 1X ONCE PO Last administered on 06/30/19at 17:14; Start 06/30/19 at 17:15; Stop 06/30/19 at 17:16; Status DC Gabapentin (Neurontin) 300 mg BID PO Last administered on 07/01/19at 08:27; Start 06/30/19 at 21:00 Aspirin (Aspirin Enteric Coated) 81 mg DAILY PO Last administered on 07/01/19at 08:28; Start 07/01/19 at 09:00 Atorvastatin Calcium (Lipitor) 20 mg DAILY PO ; Start 07/01/19 at 09:00 Diphenhydramine HCl (Benadryl) 25 mg BID PO Last administered on 07/01/19at 08:26; Start 06/30/19 at 21:00 Isosorbide Mononitrate (Imdur) 30 mg DAILY PO ; Start 07/01/19 at 09:00 Metformin HCl (Glucophage) 850 mg BIDWMEALS PO ; Start 07/02/19 at 17:00 Metoprolol Tartrate (Lopressor) 12.5 mg BID PO ; Start 06/30/19 at 21:00 Tramadol HCl (Ultram) 50 mg BID PO Last administered on 07/01/19at 08:28; Start 06/30/19 at 21:00 Levofloxacin (Levaquin) 500 mg DAILY PO Last administered on 07/01/19at 08:27; Start 07/01/19 at 09:00 Info (Do NOT chart on this entry -- for MONITORING) 1 each PRN DAILY PRN MC SEE COMMENTS; Start 06/30/19 at 19:45; Stop 07/02/19 at 19:44 Multi-Ingredient Ointment (Analgesic Magnolia) 1 alexey PRN QID PRN TP MUSCLE PAIN; Start 07/01/19 at 12:15 Active Scripts Active Levaquin (Levofloxacin) 500 Mg Tablet 1 Tab PO DAILY 7 Days Lipitor (Atorvastatin Calcium) 20 Mg Tablet 1 Tab PO DAILY 30 Days Isosorbide Mononitrate Er (Isosorbide Mononitrate) 30 Mg Tab.er.24h 1 Tab PO DAILY 30 Days Metoprolol Tartrate 25 Mg Tablet 0.5 Tab PO BID Reported Triamcinolone Acetonide 15 Gm Oint...g. 15 Gm TP BID Metformin Hcl 850 Mg Tablet 850 Mg PO BIDWMEALS Aspir-Low (Aspirin) 81 Mg Tablet.dr 81 Mg PO DAILY Ultram (Tramadol HCl) 50 Mg Tablet 50 Mg PO BID Benadryl (Diphenhydramine Hcl) 25 Mg Capsule 25 Mg PO BID Gabapentin (Gabapentin) 300 Mg Capsule 300 Mg PO BID Allergies: Coded Allergies: Penicillins (Verified Allergy, Unknown, 06/24/19) PSYCHOLOGICAL ROS: No: Hallucinations Eyes: No: Loss of vision HEENT: No: Epistaxis ENDOCRINE: No: Palpitations Respiratory: No: Hemoptysis Cardiovascular: No: Chest Pain, Edema Gastrointestinal: YES: Nausea, Vomiting, Abdominal Pain Neurological: No: Seizures Skin: No: Rash General: Alert, Oriented X3 HEENT: Atraumatic, PERRLA Lungs: Clear to auscultation Heart: Regular rate Abdomen: Soft, No tenderness Extremities: No edema Psych/Mental Status: Mood NL VITALS Vital Signs Date Time Temp Pulse Resp B/P (MAP) Pulse Ox O2 Delivery O2 Flow Rate FiO2 07/01/19 10:35 97.7 79 20 104/71 (82) 95 Room Air Labs Laboratory Tests Test 06/30/19 11:47 06/30/19 14:50 06/30/19 20:19 07/01/19 06:18 White Blood Count 9.7 x10^3/uL (4.0-11.0) Red Blood Count 4.33 x10^6/uL (3.50-5.40) Hemoglobin 11.9 g/dL (12.0-15.5) Hematocrit 37.0 % (36.0-47.0) Mean Corpuscular Volume 85 fL (79-100) Mean Corpuscular Hemoglobin 27 pg (25-35) Mean Corpuscular Hemoglobin Concent 32 g/dL (31-37) Red Cell Distribution Width 15.5 % (11.5-14.5) Platelet Count 214 x10^3/uL (140-400) Neutrophils (%) (Auto) 85 % (31-73) Lymphocytes (%) (Auto) 9 % (24-48) Monocytes (%) (Auto) 5 % (0-9) Eosinophils (%) (Auto) 1 % (0-3) Basophils (%) (Auto) 0 % (0-3) Neutrophils # (Auto) 8.2 x10^3uL (1.8-7.7) Lymphocytes # (Auto) 0.9 x10^3/uL (1.0-4.8) Monocytes # (Auto) 0.5 x10^3/uL (0.0-1.1) Eosinophils # (Auto) 0.1 x10^3/uL (0.0-0.7) Basophils # (Auto) 0.0 x10^3/uL (0.0-0.2) Sodium Level 138 mmol/L (136-145) 142 mmol/L (136-145) Potassium Level 4.7 mmol/L (3.5-5.1) 4.2 mmol/L (3.5-5.1) Chloride Level 103 mmol/L (98-107) 109 mmol/L (98-107) Carbon Dioxide Level 24 mmol/L (21-32) 23 mmol/L (21-32) Anion Gap 11 (6-14) 10 (6-14) Blood Urea Nitrogen 21 mg/dL (7-20) 15 mg/dL (7-20) Creatinine 1.0 mg/dL (0.6-1.0) 0.7 mg/dL (0.6-1.0) Estimated GFR (Cockcroft-Gault) 53.0 79.9 BUN/Creatinine Ratio 21 (6-20) Glucose Level 177 mg/dL (70-99) 135 mg/dL (70-99) Calcium Level 9.4 mg/dL (8.5-10.1) 8.1 mg/dL (8.5-10.1) Total Bilirubin 0.3 mg/dL (0.2-1.0) Aspartate Amino Transf (AST/SGOT) 34 U/L (15-37) Alanine Aminotransferase (ALT/SGPT) 31 U/L (14-59) Alkaline Phosphatase 153 U/L (46-116) Total Protein 7.1 g/dL (6.4-8.2) Albumin 3.5 g/dL (3.4-5.0) Albumin/Globulin Ratio 1.0 (1.0-1.7) Triglycerides Level 94 mg/dL (0-150) Cholesterol Level 181 mg/dL (0-200) LDL Cholesterol, Calculated 115 mg/dL (0-100) VLDL Cholesterol, Calculated 18 mg/dL (0-40) Non-HDL Cholesterol Calculated 133 mg/dL (0-129) HDL Cholesterol 48 mg/dL (40-60) Cholesterol/HDL Ratio 3.0 Lipase 134 U/L (73-393) Thyroid Stimulating Hormone (TSH) 4.746 uIU/mL (0.358-3.740) Urine Collection Type Unknown Urine Color Yellow Urine Clarity Hazy Urine pH 5.5 Urine Specific [place] 1.010 Urine Protein Trace (NEG-TRACE) Urine Glucose (UA) Neg mg/dL (NEG) Urine Ketones (Stick) Neg mg/dL (NEG) Urine Blood Neg (NEG) Urine Nitrite Neg (NEG) Urine Bilirubin Neg (NEG) Urine Urobilinogen Dipstick 0.2 mg/dL (0.2 mg/dL) Urine Leukocyte Esterase Neg (NEG) Urine RBC 1-2 /HPF (0-2) Urine WBC 5-10 /HPF (0-4) Urine Squamous Epithelial Cells Mod /LPF Urine Bacteria 0 /HPF (0-FEW) Glucose (Fingerstick) 161 mg/dL (70-99) Test 07/01/19 07:03 07/01/19 07:33 07/01/19 11:44 White Blood Count 7.1 x10^3/uL (4.0-11.0) Red Blood Count 3.76 x10^6/uL (3.50-5.40) Hemoglobin 10.4 g/dL (12.0-15.5) Hematocrit 32.1 % (36.0-47.0) Mean Corpuscular Volume 85 fL (79-100) Mean Corpuscular Hemoglobin 28 pg (25-35) Mean Corpuscular Hemoglobin Concent 32 g/dL (31-37) Red Cell Distribution Width 15.6 % (11.5-14.5) Platelet Count 176 x10^3/uL (140-400) Neutrophils (%) (Auto) 71 % (31-73) Lymphocytes (%) (Auto) 18 % (24-48) Monocytes (%) (Auto) 8 % (0-9) Eosinophils (%) (Auto) 2 % (0-3) Basophils (%) (Auto) 0 % (0-3) Neutrophils # (Auto) 5.0 x10^3uL (1.8-7.7) Lymphocytes # (Auto) 1.3 x10^3/uL (1.0-4.8) Monocytes # (Auto) 0.6 x10^3/uL (0.0-1.1) Eosinophils # (Auto) 0.2 x10^3/uL (0.0-0.7) Basophils # (Auto) 0.0 x10^3/uL (0.0-0.2) Glucose (Fingerstick) 125 mg/dL (70-99) 159 mg/dL (70-99) Assessment/Plan 1. Nausea/vomiting/abdominal pain: Symptoms improved since admission. Continue management per primary team 2. Trace pericardial effusion: Patient is presently denying any chest pain. We will plan for 2-D echocardiogram and possibly stress test as an outpatient. 3. Hypertension: Controlled 4. Hyperlipidemia: Continue statin therapy 5. Diabetes mellitus type 2: Treat per IM Alan for discharge from cardiac standpoint. Thank you for your consultation. SHONDA FERNANDEZ MD Jul 01, 2019 14:12
[2019-07-01 14:17] VITALS: BP 104/69
[2019-07-01] MEDS ORDERED: DRON2.5C PO (15:19)
[2019-07-01] MEDS ORDERED: ONDA4TAB7 PO (15:19)
--- NOTE | 2019-07-01 15:42 | HP ---
ADMIT DATE: 06/30/2019 HISTORY OF PRESENT ILLNESS: The patient is an 84-year-old female patient who was admitted recently was discharged recently after admission and treated for urinary tract infection and community-acquired pneumonia. She presented to the Emergency Room with recurrent bouts of nausea, vomiting, some abdominal discomfort. The patient has had no diarrhea. The patient did have a bowel movement on the morning of admission after she has taken her some laxatives as she does have history of constipation. She denies any fever, chills or rigors. Her abdominal discomfort is mostly in the upper abdomen with no radiation into the back. Denied any chest pain or shortness of breath and apparently has had difficulty keeping anything since the onset of vomiting. She was evaluated in the Emergency Room and her lab works were mostly unremarkable. Her serum lipase was normal at 134. She has no leukocytosis. She was started on IV fluid together with antiemetic and was continued on all her medication and she did actually very well and was admitted to continue with IV fluid and antiemetic to monitor her lab work. PAST MEDICAL HISTORY: Significant for hypertension, tobacco abuse, recent history of community-acquired pneumonia and urinary tract infection. PAST SURGICAL HISTORY: Significant for bilateral cataract extraction as well as cholecystectomy. ALLERGIES: She is ALLERGIC TO PENICILLIN. FAMILY HISTORY: She has 3 sisters and 3 brothers and all of them are still alive. Both parents were , but does not know the date because of their . SOCIAL HISTORY: She is , has 3 sons and 3 daughters. She smokes occasionally. Does not drink alcohol or use any recreational drugs. 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 MEDICATIONS: She is currently on following medications: She is on diphenhydramine 25 mg twice a day, levofloxacin 500 mg once a day, atorvastatin calcium 20 mg at bedtime, isosorbide mononitrate 30 mg once a day, metoprolol 12.5 mg twice a day, aspirin 81 mg once a day, tramadol 50 mg twice a day, gabapentin 300 mg twice a day, metformin 850 mg twice a day with meals and triamcinolone acetonide ointment topically twice a day. PHYSICAL EXAMINATION: GENERAL: On arrival to the Emergency Room, she looked well and was clearly in no apparent distress, pale. No jaundice, cyanosis or thyromegaly. No extension of edema. VITAL SIGNS: Her heart rate was 92, blood pressure was 114/63, temperature was 97.5, respiratory rate was 16 and oxygen saturation was 95%. HEAD, EYES, EARS, NOSE AND THROAT: Showed normocephalic, atraumatic. NECK: Supple. HEART: Showed normal first and second heart sounds. No gallop or murmur. CHEST: Clear to auscultation. No crepitation or rhonchi. ABDOMEN: Distended, soft, nontender. No guarding or rigidity. No organomegaly. All hernial orifice intact. Bowel sounds normal. NEUROLOGIC: She is awake, alert, responding appropriately. All cranial nerves intact. EXTREMITIES: She moves extremities without difficulty. LABORATORY DATA: On admission showed a white cell count 9700, hemoglobin 12, hematocrit 37, MCV 85 and platelet count 214,000. Her chemistry on admission showed a serum sodium 138, potassium 4.7, chloride 103, bicarbonate 24, anion gap of 11, BUN 21, creatinine 1, estimated GFR was 53 mL per minute. Her glucose 177, calcium was 9.4. Total bilirubin, AST, ALT, alkaline phosphatase were normal. Total protein 7.1, albumin 3.5. Serum lipase was 134. Urinalysis was essentially unremarkable. ASSESSMENT AND PLAN: The patient was continued on normal saline at 100 mL per hour, Zofran 4 mg IV every 4 hours. Continue with all other medication. We will monitor her response, was started on a clear liquid diet to be advanced as tolerated. BIRGIT PARTIDA MD DR: ARIS/real JOB#: [id number] / [id number]
--- NOTE | 2019-07-01 21:09 | DS ---
DATE OF DISCHARGE: 07/01/2019 HOSPITAL COURSE: The patient was admitted yesterday with recurrent bouts of nausea, vomiting and mild abdominal discomfort. She did actually start on IV fluid, antiemetic, and did very well. She has had no further episodes of nausea, vomiting, no diarrhea. She had a regular bowel movement this morning. She was seen by the epic ambulatory analyst, who recommended doing an echocardiogram and stress test as an outpatient. PHYSICAL EXAMINATION: GENERAL: When I examined her this afternoon, she looked well and was clearly in no apparent respiratory distress. No pallor, jaundice, cyanosis or thyromegaly. No jugular venous distension. No limb edema. VITAL SIGNS: Her heart rate was 74, blood pressure was 104/69, temperature was 97.4, respiratory rate 20, and oxygen saturation was 96%. HEAD, EYES, EARS, NOSE AND THROAT: Normocephalic, atraumatic. NECK: Supple. HEART: Showed normal first and second heart sounds. No gallop or murmur. CHEST: Clear to auscultation. No crepitation or rhonchi. ABDOMEN: Distended, soft, nontender. NEUROLOGIC: She was awake, alert, responding appropriately. All cranial nerves intact. EXTREMITIES: She moves extremities without difficulty. She ambulates with a walker. Her intake was 2118, no output was recorded. LABORATORY DATA: Her lab work this morning showed her white cell count was ____, hemoglobin 10, hematocrit 32, MCV 85, and platelet count of 176,000. Serum sodium was 142, potassium 4.2, chloride 109, bicarbonate 23, anion gap of 10, BUN 15, creatinine 0.7, estimated GFR was 79 mL per minute. Her glucose 135, calcium was 8.1. Her serum triglycerides were 94, total cholesterol 181, LDL was 115, VLDL was 18, non-HDL was 133, HDL cholesterol was 48 and the ratio was 3. Her TSH was 4.746. DISCHARGE MEDICATIONS: She was discharged home to continue on metformin 850 mg twice a day, levofloxacin 500 mg once a day, isosorbide mononitrate 30 mg once a day, atorvastatin calcium 20 mg daily, aspirin 81 mg once a day, tramadol 50 mg twice a day, metoprolol tartrate for Lopressor 12.5 mg twice a day, diphenhydramine 25 mg twice a day, gabapentin 300 mg twice a day. She was discharged also on Marinol 2.5 mg capsules twice a day for anorexia and Zofran 4 mg every 4 hours as needed for nausea and vomiting. FINAL DISCHARGE DIAGNOSES: 1. Acute gastritis, resolved. The patient has no further episodes of nausea or vomiting. She is tolerating her diet. 2. Type 2 diabetes mellitus. 3. Chest pain and probably coronary artery disease, for which arrangement was made for her to be seen as an outpatient to do an echocardiogram and a stress test. BIRGIT PARTIDA MD DR: ARIS/real JOB#: [id number] / [id number]
[2019-07-02] MEDS ORDERED: metFORMIN 850 MG TABLET PO SCH (17:00)
== END 2019-07-01 15:45 | disposition home or self-care (01) | DRG 392 ==
LOC: ER 11:11 → 1 SOUTH 16:38
PROVIDERS: ADMIT Internal Medicine; ATTEND Internal Medicine
DX: K29.00 Acute gastritis without bleeding (principal); I31.3 Pericardial effusion (noninflammatory); E11.9 Type 2 diabetes mellitus without complications; Z90.49 Acquired absence of other specified parts of digestive tract; Z88.0 Allergy status to penicillin; Z98.42 Cataract extraction status, left eye; Z98.41 Cataract extraction status, right eye; I10 Essential (primary) hypertension; E78.5 Hyperlipidemia, unspecified; F17.200 Nicotine dependence, unspecified, uncomplicated; I25.10 Atherosclerotic heart disease of native coronary artery without angina pectoris
CPT/HCPCS: 36415; 74177; 80048; 80053; 80061; 81001; 82947; 83690; 84443; 85025; 87086; 93005; 96361; 96374; 96376; J2405; Q0163; Q9967; 99285-25; J7030